=== PATIENT | male | born 1950 | race Caucasian/White ===

== ENCOUNTER 2021-11-07 11:02 | Inpatient (IN) ==
[2021-11-07 11:11] VITALS: BMI 27.3
--- NOTE | 2021-11-07 12:45 | DR.DIZZY ---
HPI Time seen Time Seen by Provider: 11/07/21 12:33 PCP Primary Care Physician: DR. ORTIZ HPI Comment HPI Comment: PATIENT IS 71YR OLD MALE IN ER WITH FLUID BUILD UP EXTREMITIES AND CHEST TIMES 3 DAYS. PATIENT IS WEAK AND HAVE HAD ABNORMAL LIVER EMZYME. 4 PLUS PEDAL EDEMA PRESENT TODAY. Complaint Chief Complaint Doctor Comments: FLUID BUILD UP IN EXTREMITIES AND CHEST TIMES 3 WEEKS. Chief Complaint:: PT'S DAUGHTER STATES PT HAS BEEN HAVING FLUID BUILD UP IN BILATERAL LEGS, HANDS, & IN CHEST X3 WEEKS. PT ALSO C/O GENERALIZED WEAKNESS X3 WEEKS. PT HAS 4+ PITTING EDEMA NOTED TO BLE. PT'S DAUGHTER ALSO STS PT'S LIVER ENZYMES HAS BEEN ELEVATED. COVID-19 Coronavirus risk:travel/contact w/high risk person: No Has patient experienced Coronavirus symptoms: No Nurses Notes Reviewed Nurses Notes Review: Yes Source History Provided: Patient and Family Member Mode of Arrival Mode of Arrival: Wheelchair Timing Onset of Chief Complaint: 10/24/21 Came on: Suddenly Duration Duration: Constant Duration: Weeks Location of Weakness Weakness Location: Generalized Context Onset: At rest Does pt take pot. toxic medication?: No History of: None Stroke Symptoms: None Severity Severity: Normal activity level Modifying factors Worsens: Other (EXERTION.) Associated signs and symptoms Associated Signs and Symptoms: Weak PMH PMH Past Medical History: Yes Past Medical History: Arthritis and Hypertension Past Surgical History: Yes Surgical History: Ortho Surgery and Other Past Surgical History Comment: BACK SURGERY, NECK SURGERY Family History History of Family Medical Conditions: Yes Family Medical History: Diabetes Mellitus and Hypertension Social History Do you use any recreational Drugs:: Yes Travel Risk Coronavirus risk:travel/contact w/high risk person: No Has patient experienced Coronavirus symptoms: No Infectious screening Have you traveled outside the country in the last 6 months?: No Isolation: Standard ROS Review of Systems Constitutional: See HPI, Weakness and Fatigue; negative Fever Eyes: No Symptoms Reported and See HPI ENTM: No Symptoms Reported and See HPI; negative Nose Discharge and Nose Congestion Respiratoy: See HPI, Moist Cough and Short of Breath; negative Wheezing Cardiovascular: See HPI and Edema Gastrointestinal/Abdominal: No Symptoms Reported and See HPI; negative Abdominal Pain, Diarrhea and Vomiting Genitourinary: No Symptoms Reported and See HPI; negative Dysuria Neurological: See HPI and Weakness; negative Headache and Dizziness Musculoskeletal: No Symptoms Reported and See HPI; negative Muscle Pain Integumentary: No Symptoms Reported and See HPI; negative Rash and Juandice Hematologic/Lymphatic: No Symptoms Reported and See HPI; negative Easy Bruising Endocrine: No Symptoms Reported and See HPI; negative Increased Thirst and Increased Urine Psychiatric: No Symptoms Reported and See HPI All Other Systems: Reviewed and Negative PE Vital Signs Vitals: Temperature 97.9 F Pulse Rate 80 Respiratory Rate 16 Blood Pressure [Left Arm] 140/69 Blood Pressure 119/65 O2 Sat by Pulse Oximetry 96 General Limitations: No Limitations General Appearance: Alert and In No Apparent Distress Head Head Exam: Normal Inspection Eyes Eye exam: Normal Appearance; negative Scleral Icterus and Conjunctival Injection Pupils: Regular, Round: Bilateral and Reactive: Bilateral Sclera/Conjunctival: Normal Inspection: Bilateral ENT ENT Exam: Normal Exam and Normal External Ear Exam; negative Normal Oropharynx and TM's Normal Bilaterally Neck Neck Exam: Normal Inspection, Full ROM and Trachea Midline; negative Tenderness Chest Chest Inspection: Normal Inspection and Symmetric Chest Wall Rise; negative Tenderness Respiratory Respiratory Exam: Normal Lung Sounds Bilat; negative Accessory Muscle Use, Chest Wall Tenderness and Respiratory Distress Respiratory Exam: Bilateral: Clear to Auscultation Cardiovascular Cardiovascular Exam: Regular Rate, Normal Rhythm and Normal Heart Sounds; negative Systolic Murmur and Diastolic Murmur Abdominal Exam Abdominal Exam: Normal Inspection, Normal Bowel Sounds and Soft; negative Tenderness Rectal Rectal Exam: Deferred Extremeties Extremities Exam: Full ROM and Edema Back Back Exam: Normal Inspection and Full ROM Neurologic Neurological Exam: Alert and Oriented X3; negative Motor Sensory Deficit Patient Oriented To: Person, Place and Time Speech: Fluid Speech Cranial Nerve Exam: EOM Function (II, III, IV, ): Normal, Facial Sensation (V): Normal, Facial Palsy (VII): Normal, Gag reflex (XI): Normal and Tongue Deviation: Normal Cerebellar Function: Normal Gait Motor Strength - LUE: 5/5 Motor Strength - RUE: 5/5 Motor Strength - LLE: 5/5 Motor Strength - RLE: 5/5 Upper Motor Neuron Exam: Babinski Sign: Normal Psychiatric Psychiatric Exam: Normal Affect and Normal Mood Skin Skin Exam: Other (4 PLUS PEDAL GLADYS.) MDM Differential Diagnosis Differential Diagnosis: Dehydration, Electrolyte disorder, Hypoglycemia and Myocardial infarction Differential Diagnosis Comment: PNEUMONIA, BRONCHITIS, CHF. COURSE Treatment Treatment: SEE ORDERS. Consultation Consultation Comments: discussed patient will dr. maria. he will admit patient. Education/Counseling Education/Counseling: Patient Educated On: Diagnosis ROR Labs Reviewed Laboratory Results Reviewed?: Yes Result Diagrams: 11/13/21 05:36 11/13/21 05:36 Laboratory: WBC 13.9 X10^3/uL (3.6-10.0) H 11/07/21 12:58 RBC 2.96 X10^6/uL (4.7-6.0) L 11/07/21 12:58 Hgb 11.5 g/dL (13.5-18.0) L 11/07/21 12:58 Hct 33.7 % (42.0-54.0) L 11/07/21 12:58 MCV 113.9 fL (80.0-100.0) H 11/07/21 12:58 MCH 38.9 pg (27.0-34.0) H 11/07/21 12:58 MCHC 34.2 g/dL (33.0-35.0) 11/07/21 12:58 RDW 14.7 % (11.6-16.5) 11/07/21 12:58 Plt Count 252 X10^3/uL (150.0-450.0) 11/07/21 12:58 Plt Count Comment Adequate (ADEQUATE) 11/07/21 12:58 MPV 8.9 fL (7.4-11.0) 11/07/21 12:58 Neut % (Auto) 79.3 % (42.0-75.0) H 11/07/21 12:58 Lymph % (Auto) 11.4 % (21.0-51.0) L 11/07/21 12:58 [place] % (Auto) 8.2 % (0.0-13.0) 11/07/21 12:58 Eos % (Auto) 0.1 % (0.9-2.9) L 11/07/21 12:58 Baso % (Auto) 1.0 % (0.2-1.0) 11/07/21 12:58 Neut # (Auto) 11.0 x10^3/uL (2.2-4.8) H 11/07/21 12:58 Lymph # (Auto) 1.6 X10^3/uL (1.3-2.9) 11/07/21 12:58 [place] # (Auto) 1.1 x10^3/uL (0.3-0.8) H 11/07/21 12:58 Eos # (Auto) 0.0 x10^3/uL (0.0-0.2) 11/07/21 12:58 Baso # (Auto) 0.1 X10^3/uL (0.0-0.1) 11/07/21 12:58 Absolute Nucleated RBC 0.1 /100WBC 11/07/21 12:58 Total Counted 100 11/07/21 12:58 Neutrophils % (Manual) 85 % (39-76) H 11/07/21 12:58 Band Neutrophils % 1 % (0-10) 11/07/21 12:58 Lymphocytes % (Manual) 11 % (13-43) L 11/07/21 12:58 Monocytes % (Manual) 3 % (4-9) L 11/07/21 12:58 Plt Morphology Comment Normal (NORMAL) 11/07/21 12:58 RBC Morphology Abnormal (NORMAL) 11/07/21 12:58 Macrocytosis 2+ A 11/07/21 12:58 Target Cells Present 11/07/21 12:58 Sodium 127 mmol/L (136-145) L 11/07/21 12:58 Corrected Sodium TNP 11/07/21 12:58 Potassium 4.9 mmol/L (3.5-5.1) 11/07/21 12:58 Chloride 90 mmol/L (98-107) L 11/07/21 12:58 Carbon Dioxide 24.6 mmol/L (21-32) 11/07/21 12:58 BUN 14 mg/dL (7-18) 11/07/21 12:58 Creatinine 1.22 mg/dL (0.70-1.30) 11/07/21 12:58 Est GFR (MDRD) Af Amer > 60 (>60) 11/07/21 12:58 Est GFR (MDRD) Non-Af > 60 (>60) 11/07/21 12:58 Glucose 92 mg/dL (65-99) 11/07/21 12:58 Calcium 8.0 mg/dL (8.5-10.1) L 11/07/21 12:58 Corrected Calcium 9.3 mg/dL (8.5-10.1) 11/07/21 12:58 Total Bilirubin 2.00 mg/dL (0.2-1.0) H 11/07/21 12:58 AST 192 Units/L (15-37) H 11/07/21 12:58 ALT 77 Units/L (12-78) 11/07/21 12:58 Alkaline Phosphatase 281 Units/L (46-116) H 11/07/21 12:58 Ammonia 18 umol/L (11-32) 11/07/21 12:58 Total Protein 7.1 g/dL (6.4-8.2) 11/07/21 12:58 Albumin 2.4 g/dL (3.4-5.0) L 11/07/21 12:58 Globulin 4.7 g/dL (2.5-4.5) H 11/07/21 12:58 Albumin/Globulin Ratio 0.5 Ratio (1.1-2.1) L 11/07/21 12:58 Amylase 52 Units/L (25-115) 11/07/21 12:58 Lipase 148 Units/L (73-393) 11/07/21 12:58 Specimen Type Clean catch urine 11/07/21 14:15 Urine Color Yellow (YELLOW) 11/07/21 14:15 Urine Appearance Clear (CLEAR) 11/07/21 14:15 Urine pH 5.0 (5.0 - 8.0) 11/07/21 14:15 Ur Specific [place] 1.010 (1.000-1.030) 11/07/21 14:15 Urine Protein 1+ (NEGATIVE) 11/07/21 14:15 Urine Glucose (UA) Negative (NEGATIVE) 11/07/21 14:15 Urine Ketones 1+ (NEGATIVE) 11/07/21 14:15 Urine Occult Blood Negative (NEGATIVE) 11/07/21 14:15 Urine Nitrite Negative (NEGATIVE) 11/07/21 14:15 Urine Bilirubin Negative (NEGATIVE) 11/07/21 14:15 Urine Urobilinogen Normal (NORMAL) 11/07/21 14:15 Ur Leukocyte Esterase Negative (NEGATIVE) 11/07/21 14:15 Urine RBC 0-2 /HPF (0-3) 11/07/21 14:15 Urine WBC 0-2 /HPF (0-5) 11/07/21 14:15 Ur Squamous Epith Cells Rare /HPF (NEGATIVE) 11/07/21 14:15 Urine Bacteria Negative /HPF (NEGATIVE) 11/07/21 14:15 Ur Culture Indicated? No/not indicated 11/07/21 14:15 XRAY XRAY Interpreted by: Radiologist (REPORT NOTED AND DISCUSSED WITH PATIENT.) and Self Opioid Opioid Risk Tool Age (Sean box if 16-45): No History of Preadolescent Sexual Abuse: No Total: 0 Total Score Risk Category: Low Risk Copyright: [facility] predicting aberrant behaviors Diagnosis Discharge Problem: Acute hyponatremia, Acute dehydration, Anasarca Abdominal ascites Qualifiers: Ascites type: due to alcoholic cirrhosis Qualified Code(s): K70.31 - Alcoholic cirrhosis of liver with ascites Instructions Instructions: Chemical Dependency Alcohol Abuse and Dependence Information, Adult Chronic Kidney Disease, Adult, [id number] Hyponatremia, [id number] Forms: Excuse From Work or School Precautions for COVID19 [facility] Social Distancing
--- NOTE | 2021-11-07 13:05 | RAD ---
HISTORYSOBSTUDYCHEST, 1 [id number]/27/2019.TECHNIQUEAP view of the chestFINDINGSPatient is minimally rotated. The left heart border is obscured. Cardiac and mediastinal contours are otherwise normal. There is is severe elevation left hemidiaphragm which is unchanged from prior study. There is left perihilar and right infrahilar opacity. No definite pleural effusion or pneumothorax.IMPRESSIONLeft perihilar and right infrahilar opacity may represent atelectasis or pneumonia.Electronically signed by: Juancarlos Macdonald (Nov 07, 2021 13:03:22)
[2021-11-07 13:22] LABS: BASOPHILS # (AUTO) 0.1 X10^3/uL (0.0-0.1); EOSINOPHILS % (AUTO) 0.1 % (0.9-2.9); HEMATOCRIT 33.7 % (42.0-54.0); HEMOGLOBIN 11.5 g/dL (13.5-18.0); LYMPHOCYTES # (AUTO) 1.6 X10^3/uL (1.3-2.9); LYMPHOCYTES % (AUTO) 11.4 % (21.0-51.0); MEAN CORPUSCULAR HEMOGLOBIN 38.9 pg (27.0-34.0); MEAN CORPUSCULAR HGB CONC 34.2 g/dL (33.0-35.0); MEAN CORPUSCULAR VOLUME 113.9 fL (80.0-100.0); MEAN PLATELET VOLUME 8.9 fL (7.4-11.0); MONOCYTES # (AUTO) 1.1 x10^3/uL (0.3-0.8); MONOCYTES % (AUTO) 8.2 % (0.0-13.0); NEUTROPHILS % (AUTO) 79.3 % (42.0-75.0); RED BLOOD COUNT 2.96 X10^6/uL (4.7-6.0); RED CELL DISTRIBUTION WIDTH 14.7 % (11.6-16.5); WHITE BLOOD COUNT 13.9 X10^3/uL (3.6-10.0)
[2021-11-07 13:38] LABS: AMMONIA 18 umol/L (11-32)
[2021-11-07 13:43] LABS: ALANINE AMINOTRANSFERASE 77 Units/L (12-78); ALBUMIN 2.4 g/dL (3.4-5.0); ALKALINE PHOSPHATASE 281 Units/L (46-116); AMYLASE 52 Units/L (25-115); ASPARTATE AMINO TRANSFERASE 192 Units/L (15-37); BLOOD UREA NITROGEN 14 mg/dL (7-18); CARBON DIOXIDE 24.6 mmol/L (21-32); CHLORIDE 90 mmol/L (98-107); COR CA(FOR HYPOALB) 9.3 mg/dL (8.5-10.1); CREATININE 1.22 mg/dL (0.70-1.30); LIPASE 148 Units/L (73-393); SODIUM 127 mmol/L (136-145); TOTAL PROTEIN 7.1 g/dL (6.4-8.2); eGFR NON BLACK RACES > 60 (>60)
[2021-11-07 14:04] LABS: PLATELET MORPHOLOGY COMMENT NORMAL (NORMAL); TARGET CELLS PRESENT
[2021-11-07 14:05] LABS: BAND NEUTROPHILS % 1 % (0-10)
[2021-11-07] MEDS ORDERED: NS 100 ML IV 100 ML ONE (14:13)
[2021-11-07 14:31] LABS: BILIRUBIN,URINE NEGATIVE (NEGATIVE); BLOOD/HEMOGLOBIN,URINE NEGATIVE (NEGATIVE); GLUCOSE, URINE NEGATIVE (NEGATIVE); KETONES,URINE 1+ (NEGATIVE); LEUKOCYTE ESTERASE ,URINE NEGATIVE (NEGATIVE); NITRITES,URINE NEGATIVE (NEGATIVE); PROTEIN,URINE 1+ (NEGATIVE); UROBILINOGEN,URINE NORMAL (NORMAL)
[2021-11-07 14:45] LABS: APPEARANCE,URINE CLEAR (CLEAR); COLOR,URINE YELLOW (YELLOW)
[2021-11-07 14:46] LABS: BACTERIA,URINE NEGATIVE /HPF (NEGATIVE); RBC,URINE 0-2 /HPF (0-3); SQUAMOUS EPITHELIAL CELL,UR RARE /HPF (NEGATIVE)
--- NOTE | 2021-11-07 14:57 | CT ---
HISTORYFLUID BUILD UP IN BILATERAL LEGS, HANDS, & IN CHEST X3 WEEKS. PT ALSO C/O GENERALIZED WEAKNESS X3 WEEKS. PT HAS 4+ PITTING EDEMA NOTED TO BLE. PT'S DAUGHTER ALSO STS PT'S LIVER ENZYMES HAS BEEN ELEVATED.STUDYABDOMEN/PELVIS WITH CONCOMPARISONAbdomen ultrasound from 09/11/2021.TECHNIQUEMultiple axial images of the abdomen and pelvis were obtained from the lung bases to the pubic symphysis after the administration of IV contrast. Dose reduction techniques including Automated Exposure Control (AEC) and adjustment of mA and kV were utilized.FINDINGSMild motion artifact limits evaluation. Left lower lobe subsegmental atelectasis is present in image 3 series 4. The heart is normal in size. There is prominent pericardial fat. There is elevation of the left hemidiaphragm. There is diffuse hepatic steatosis. The gallbladder, spleen, pancreas, and adrenal glands appear benign. Kidneys appear benign without calculus or hydronephrosis. Urinary bladder is partially decompressed. The prostate is normal in size. Negative for diverticulitis. Apparent wall thickening of some there is of the colon wall such as at the proximal ascending colon measuring 1.1 cm image 70 series 4 and at the splenic flexure measuring 1 cm image 28 series 4 likely due to decompressed state. The appendix appears normal. Negative for bowel obstruction. Moderately atherosclerotic normal caliber abdominal aorta. No free air or abscess. The portal vein is patent. There is mild ascites particularly in the left upper quadrant about the spleen moderate body wall edema. Status post laminectomy at L4 and L5. Moderate to severe lumbar spondylosis. Chronic appearing left rib fractures. Mild leftward curvature of the lumbar spine apex L2.IMPRESSIONMild ascites particularly in the left upper quadrant.Hepatic steatosis.Elevated left hemidiaphragm with left lower lobe subsegmental atelectasis.Mild thickening of areas of the colon wall favored to be due to a decompressed state rather than colitis or neoplasm.Electronically signed by: Juancarlos Macdonald (Nov 07, 2021 14:56:11)
[2021-11-07] MEDS ORDERED: LIBRIUM PO ONE (21:41)
[2021-11-07] MEDS: LIBRIUM PO SCH (21:52)
[2021-11-07] MEDS ORDERED: LASIX IVP ONE ×2 (22:41→22:57)
[2021-11-07] MEDS ORDERED: VENTOLIN or PROAIR HFA IN PRN (22:41)
[2021-11-07] MEDS ORDERED: ALBURX INJ 5% 25 G/500 ML VIAL IV SCH (22:41)
[2021-11-07] MEDS ORDERED: NORCO 10/325 TAB ONE (22:58)
[2021-11-07] MEDS ORDERED: ALBUMIN HUMAN 25%- 100 ML 100 ML ONE (23:29)
[2021-11-07] MEDS: SOLU-Medrol 40 MG VIAL IVP SCH (23:45)
[2021-11-08] MEDS ORDERED: ALBUMIN HUMAN 25% IV ONE (00:07)
[2021-11-08] MEDS: NORCO 10/325 TAB PO SCH ×2 (00:20→05:00)
[2021-11-08 02:57] LABS: BILIRUBIN,URINE NEGATIVE (NEGATIVE); BLOOD/HEMOGLOBIN,URINE NEGATIVE (NEGATIVE); GLUCOSE, URINE NEGATIVE (NEGATIVE); KETONES,URINE 1+ (NEGATIVE); LEUKOCYTE ESTERASE ,URINE NEGATIVE (NEGATIVE); NITRITES,URINE NEGATIVE (NEGATIVE); PROTEIN,URINE NEGATIVE (NEGATIVE); UROBILINOGEN,URINE NORMAL (NORMAL)
[2021-11-08 03:07] LABS: APPEARANCE,URINE CLEAR (CLEAR); COLOR,URINE STRAW (YELLOW)
[2021-11-08] MEDS ORDERED: NORCO 10/325 TAB ONE ×2 (05:00→10:12)
[2021-11-08 07:05] LABS: BASOPHILS # (AUTO) 0.2 X10^3/uL (0.0-0.1); BASOPHILS % (AUTO) 1.1 % (0.2-1.0); EOSINOPHILS % (AUTO) 0.1 % (0.9-2.9); HEMOGLOBIN 11.9 g/dL (13.5-18.0); LYMPHOCYTES # (AUTO) 1.6 X10^3/uL (1.3-2.9); LYMPHOCYTES % (AUTO) 8.7 % (21.0-51.0); MEAN CORPUSCULAR HEMOGLOBIN 38.4 pg (27.0-34.0); MONOCYTES # (AUTO) 1.6 x10^3/uL (0.3-0.8); MONOCYTES % (AUTO) 8.7 % (0.0-13.0); NEUTROPHILS # (AUTO) 14.7 x10^3/uL (2.2-4.8); NEUTROPHILS % (AUTO) 81.4 % (42.0-75.0); RED BLOOD COUNT 3.09 X10^6/uL (4.7-6.0); RED CELL DISTRIBUTION WIDTH 14.3 % (11.6-16.5); WHITE BLOOD COUNT 18.1 X10^3/uL (3.6-10.0)
[2021-11-08 07:12] LABS: ALANINE AMINOTRANSFERASE 72 Units/L (12-78); ALKALINE PHOSPHATASE 267 Units/L (46-116); ASPARTATE AMINO TRANSFERASE 170 Units/L (15-37); BLOOD UREA NITROGEN 11 mg/dL (7-18); CALCIUM 8.5 mg/dL (8.5-10.1); CARBON DIOXIDE 22.9 mmol/L (21-32); CHLORIDE 92 mmol/L (98-107); COR CA(FOR HYPOALB) 9.3 mg/dL (8.5-10.1); CREATININE 0.87 mg/dL (0.70-1.30); MAGNESIUM 1.7 mg/dL (1.7-2.9); SODIUM 132 mmol/L (136-145); TOTAL PROTEIN 7.4 g/dL (6.4-8.2); eGFR NON BLACK RACES > 60 (>60)
[2021-11-08] MEDS ORDERED: PULMICORT NEB TX 0.5 MG NEB ONE ×2 (07:34→20:30)
[2021-11-08] MEDS ORDERED: BROVANA ONE (07:35)
[2021-11-08 07:36] LABS: PLATELET MORPHOLOGY COMMENT NORMAL (NORMAL); TARGET CELLS PRESENT
[2021-11-08] MEDS: PULMICORT NEB TX 0.5 MG NEB SCH (08:18)
[2021-11-08] MEDS: BROVANA IN SCH (08:18)
[2021-11-08] MEDS: ALDACTONE TAB 25 MG PO SCH (08:35)
[2021-11-08] MEDS: TOPROL XL PO SCH (08:35)
[2021-11-08] MEDS: LIBRIUM PO SCH ×3 (08:35→17:00)
[2021-11-08] MEDS ORDERED: REMDESIVIR 200 MG in NS 250 ML IV 250 ML IV NR (09:41)
[2021-11-08] MEDS ORDERED: LASIX IVP ONE ×2 (10:12→21:00)
[2021-11-08] MEDS ORDERED: REMDESIVIR IV ONE (10:12)
[2021-11-08] MEDS ORDERED: NS 250 ML IV 250 ML IV ONE (10:13)
[2021-11-08] MEDS: XYLOCAINE OINT 5% TOP SCH ×2 (10:37→13:33)
[2021-11-08] MEDS: ALBUMIN HUMAN 25%- 100 ML 100 ML IV SCH (10:37)
[2021-11-08] MEDS: LASIX IVP SCH (10:38)
[2021-11-08] MEDS: NORCO 10/325 TAB PO PRN ×2 (10:38→17:00)
[2021-11-08] MEDS ORDERED: LOVENOX INJ 40 MG SYR SC ONE (13:00)
[2021-11-08] MEDS: LOVENOX INJ 40 MG SYR SC SCH (14:43)
[2021-11-08] MEDS ORDERED: BROVANA IN ONE (20:30)
[2021-11-08] MEDS ORDERED: LIBRIUM PO ONE (21:00)
[2021-11-08] MEDS ORDERED: ALBUMIN HUMAN 25%- 100 ML IV ONE (21:00)
[2021-11-08] MEDS ORDERED: NORCO 10/325 TAB PO ONE (22:00)
[2021-11-09] MEDS ORDERED: PULMICORT NEB TX 0.5 MG NEB ONE (09:30)
[2021-11-09] MEDS ORDERED: BROVANA IN ONE (09:30)
[2021-11-09] MEDS: LIBRIUM PO SCH ×5 (14:00→20:44)
[2021-11-09 14:01] LABS: ALANINE AMINOTRANSFERASE 54 Units/L (12-78); ALBUMIN 2.9 g/dL (3.4-5.0); ALKALINE PHOSPHATASE 214 Units/L (46-116); AMMONIA 31 umol/L (11-32); ASPARTATE AMINO TRANSFERASE 115 Units/L (15-37); BLOOD UREA NITROGEN 10 mg/dL (7-18); CARBON DIOXIDE 28.7 mmol/L (21-32); CHLORIDE 96 mmol/L (98-107); COR CA(FOR HYPOALB) 8.9 mg/dL (8.5-10.1); COR NA(FOR HYPERGLY) 133 mmol/L (136-145); CREATININE 0.88 mg/dL (0.70-1.30); SODIUM 133 mmol/L (136-145); TOTAL PROTEIN 6.5 g/dL (6.4-8.2); eGFR NON BLACK RACES > 60 (>60)
[2021-11-09 14:04] LABS: BASOPHILS % (AUTO) 0.2 % (0.2-1.0); EOSINOPHILS % (AUTO) 0.4 % (0.9-2.9); HEMATOCRIT 30.8 % (42.0-54.0); HEMOGLOBIN 10.6 g/dL (13.5-18.0); LYMPHOCYTES % (AUTO) 10.9 % (21.0-51.0); MEAN CORPUSCULAR HGB CONC 34.4 g/dL (33.0-35.0); MEAN CORPUSCULAR VOLUME 113.2 fL (80.0-100.0); MEAN PLATELET VOLUME 9.2 fL (7.4-11.0); MONOCYTES # (AUTO) 0.9 x10^3/uL (0.3-0.8); MONOCYTES % (AUTO) 9.5 % (0.0-13.0); NEUTROPHILS # (AUTO) 7.4 x10^3/uL (2.2-4.8); PLATELET MORPHOLOGY COMMENT NORMAL (NORMAL); RED BLOOD COUNT 2.72 X10^6/uL (4.7-6.0); RED CELL DISTRIBUTION WIDTH 14.2 % (11.6-16.5); WHITE BLOOD COUNT 9.4 X10^3/uL (3.6-10.0)
[2021-11-09] MEDS: XYLOCAINE OINT 5% TOP SCH ×3 (14:14→21:52)
--- NOTE | 2021-11-09 14:26 | RAD ---
HISTORYCOVID, shortness of breathSTUDYChest AP [id number] remains enlarged. No congestive heart failure is noted. Right lung and left upper lung crook are clear. Left hemidiaphragm is elevated. Retrocardiac left lower lobe infiltrate atelectasis likely present. No pleural effusion or pneumothorax is identified. Bony thorax is unremarkable.IMPRESSIONNo change cardiomegaly without congestive heart failureNo change chronically elevated left hemidiaphragmRight lung and left upper lung crook clearRetrocardiac left lower lobe infiltrate atelectasis unchangedElectronically signed by: JASON OCONNOR (Nov 09, 2021 14:24:36)
[2021-11-09] MEDS: ALBUMIN HUMAN 25%- 100 ML 100 ML IV SCH ×3 (15:53→20:44)
[2021-11-09] MEDS: LOVENOX INJ 40 MG SYR SC SCH (15:55)
[2021-11-09] MEDS: TOPROL XL PO SCH (15:55)
[2021-11-09] MEDS: ALDACTONE TAB 25 MG PO SCH (15:55)
[2021-11-09] MEDS: REMDESIVIR 100 MG in NS 250 ML IV 250 ML IV SCH (15:55)
--- NOTE | 2021-11-09 16:00 | PCM.PROG ---
Progress Note Progress Note for Day of Date of Exam: 11/09/21 Subjective Subjective: Patient is alert this morning. He wishes to get out of bed and walk and sit in the chair. No significant problems overnight. Past Medical Family Social History Past Med/Fam/Surg Hx: No changes since H&P Allergies: Allergies No Known Drug Allergies Allergy (Verified 11/07/21 13:04) Vital Signs and I&O's Vital Signs: Temperature 98.3 F Pulse Rate [Left Brachial] 86 Pulse Rate 102 Respiratory Rate 20 Blood Pressure [Left Arm] 145/71 Blood Pressure 140/68 O2 Sat by Pulse Oximetry 99 Intake and Output: Intake & Output 11/07/21 11/08/21 11/09/21 11/10/21 11:59 11:59 11:59 11:59 Intake Total 400 / 400 270 / 270 666 / 666 Output Total 1625 / 1625 625 / 625 1200 / 1200 Balance -1225 / -1225 -355 / -355 -534 / -534 Physical Exam Oriented: Normal Eyes: Normal Ear: Normal Nose: Normal Throat: Normal Respiratory: Normal Cardiovascular: Normal : Normal Auscultation: Bowel Sounds: Normal Palpation: Normal Tenderness: Normal Skin: Normal Musculoskeletal: Normal Psychiatric: Normal Mood Description: Calm Affect: Normal Speech Pattern: Clear and Appropriate Laboratory and Diagnostics Result Diagrams: 11/09/21 04:46 11/09/21 04:46 Labs: Laboratory WBC 9.4 X10^3/uL (3.6-10.0) D 11/09/21 04:46 RBC 2.72 X10^6/uL (4.7-6.0) L 11/09/21 04:46 Hgb 10.6 g/dL (13.5-18.0) L 11/09/21 04:46 Hct 30.8 % (42.0-54.0) L 11/09/21 04:46 MCV 113.2 fL (80.0-100.0) H 11/09/21 04:46 MCH 39.0 pg (27.0-34.0) H 11/09/21 04:46 MCHC 34.4 g/dL (33.0-35.0) 11/09/21 04:46 RDW 14.2 % (11.6-16.5) 11/09/21 04:46 Plt Count 159 X10^3/uL (150.0-450.0) 11/09/21 04:46 Plt Count Comment Adequate (ADEQUATE) 11/09/21 04:46 MPV 9.2 fL (7.4-11.0) 11/09/21 04:46 Neut % (Auto) 79.0 % (42.0-75.0) H 11/09/21 04:46 Lymph % (Auto) 10.9 % (21.0-51.0) L 11/09/21 04:46 [place] % (Auto) 9.5 % (0.0-13.0) 11/09/21 04:46 Eos % (Auto) 0.4 % (0.9-2.9) L 11/09/21 04:46 Baso % (Auto) 0.2 % (0.2-1.0) 11/09/21 04:46 Neut # (Auto) 7.4 x10^3/uL (2.2-4.8) H 11/09/21 04:46 Lymph # (Auto) 1.0 X10^3/uL (1.3-2.9) L 11/09/21 04:46 [place] # (Auto) 0.9 x10^3/uL (0.3-0.8) H 11/09/21 04:46 Eos # (Auto) 0.0 x10^3/uL (0.0-0.2) 11/09/21 04:46 Baso # (Auto) 0.0 X10^3/uL (0.0-0.1) 11/09/21 04:46 Absolute Nucleated RBC 0.1 /100WBC 11/09/21 04:46 Total Counted 100 11/07/21 12:58 Neutrophils % (Manual) 85 % (39-76) H 11/07/21 12:58 Band Neutrophils % 1 % (0-10) 11/07/21 12:58 Lymphocytes % (Manual) 11 % (13-43) L 11/07/21 12:58 Monocytes % (Manual) 3 % (4-9) L 11/07/21 12:58 Plt Morphology Comment Normal (NORMAL) 11/09/21 04:46 RBC Morphology Abnormal (NORMAL) 11/09/21 04:46 Macrocytosis 2+ A 11/09/21 04:46 Target Cells Present 11/08/21 06:40 PT 14.6 SECONDS (11.8-14.3) 11/07/21 23:19 INR Target Range - 11/07/21 23:19 INR 1.20 (0.8-1.3) 11/07/21 23:19 APTT 35.7 SECONDS (22.9-36.5) 11/08/21 06:40 PTT Comment - 11/08/21 06:40 Sodium 133 mmol/L (136-145) L 11/09/21 04:46 Corrected Sodium 133 mmol/L (136-145) L 11/09/21 04:46 Potassium 3.4 mmol/L (3.5-5.1) L 11/09/21 04:46 Chloride 96 mmol/L (98-107) L 11/09/21 04:46 Carbon Dioxide 28.7 mmol/L (21-32) 11/09/21 04:46 BUN 10 mg/dL (7-18) 11/09/21 04:46 Creatinine 0.88 mg/dL (0.70-1.30) 11/09/21 04:46 Est GFR (MDRD) Af Amer > 60 (>60) 11/09/21 04:46 Est GFR (MDRD) Non-Af > 60 (>60) 11/09/21 04:46 Glucose 114 mg/dL (65-99) H 11/09/21 04:46 Calcium 8.0 mg/dL (8.5-10.1) L 11/09/21 04:46 Corrected Calcium 8.9 mg/dL (8.5-10.1) 11/09/21 04:46 Magnesium 1.7 mg/dL (1.7-2.9) 11/08/21 06:40 Total Bilirubin 1.70 mg/dL (0.2-1.0) H 11/09/21 04:46 AST 115 Units/L (15-37) H 11/09/21 04:46 ALT 54 Units/L (12-78) 11/09/21 04:46 Alkaline Phosphatase 214 Units/L (46-116) H 11/09/21 04:46 Ammonia 31 umol/L (11-32) 11/09/21 04:46 C-Reactive Protein 78.20 mg/L (0-3.0) H 11/09/21 04:46 Total Protein 6.5 g/dL (6.4-8.2) 11/09/21 04:46 Albumin 2.9 g/dL (3.4-5.0) L 11/09/21 04:46 Globulin 3.6 g/dL (2.5-4.5) 11/09/21 04:46 Albumin/Globulin Ratio 0.8 Ratio (1.1-2.1) L 11/09/21 04:46 Amylase 52 Units/L (25-115) 11/07/21 12:58 Lipase 148 Units/L (73-393) 11/07/21 12:58 Specimen Type Clean catch urine 11/08/21 02:43 Urine Color Straw (YELLOW) 11/08/21 02:43 Urine Appearance Clear (CLEAR) 11/08/21 02:43 Urine pH 6.0 (5.0 - 8.0) 11/08/21 02:43 Ur Specific [place] 1.005 (1.000-1.030) 11/08/21 02:43 Urine Protein Negative (NEGATIVE) 11/08/21 02:43 Urine Glucose (UA) Negative (NEGATIVE) 11/08/21 02:43 Urine Ketones 1+ (NEGATIVE) 11/08/21 02:43 Urine Occult Blood Negative (NEGATIVE) 11/08/21 02:43 Urine Nitrite Negative (NEGATIVE) 11/08/21 02:43 Urine Bilirubin Negative (NEGATIVE) 11/08/21 02:43 Urine Urobilinogen Normal (NORMAL) 11/08/21 02:43 Ur Leukocyte Esterase Negative (NEGATIVE) 11/08/21 02:43 Urine RBC 0-2 /HPF (0-3) 11/07/21 14:15 Urine WBC 0-2 /HPF (0-5) 11/07/21 14:15 Ur Squamous Epith Cells Rare /HPF (NEGATIVE) 11/07/21 14:15 Urine Bacteria Negative /HPF (NEGATIVE) 11/07/21 14:15 Ur Culture Indicated? No/not indicated 11/07/21 14:15 SARS CoV-2 RNA Rapid GILLES Positive (NEGATIVE) A 11/07/21 20:25 Radiology Reviewed: Yes Plan (1) Elevated LFTs: Status: Acute Narrative Support Text: Improving. Plan: Continue IVF and avoid alcohol. (2) Alcoholism: Status: Acute Plan: Continue Librium. (3) Acute hyponatremia: Status: Acute Plan: NS IVF (4) Acute hypokalemia: Status: Acute Plan: Potassium replacement protocol. (5) Diarrhea in adult patient: Status: Acute (6) COPD with hypoxia: Status: Acute (7) Altered mental state: Status: Acute Qualifiers: Altered mental status type: transient alteration of awareness Qualified Code(s): R40.4 - Transient alteration of awareness Narrative Support Text: improved. Plan: Monitor for change.
[2021-11-09] MEDS: LASIX IVP SCH (16:33)
[2021-11-09] MEDS ORDERED: TYLENOL 325 MG TAB PO ONE (20:32)
[2021-11-09] MEDS: PULMICORT NEB TX 0.5 MG NEB SCH (21:05)
[2021-11-09] MEDS: BROVANA IN SCH (21:05)
[2021-11-09] MEDS: NORCO 10/325 TAB PO PRN (21:41)
[2021-11-09] MEDS ORDERED: COLACE CAP 100 MG PO ONE (22:09)
[2021-11-09] MEDS: COLACE CAP 100 MG PO PRN (22:27)
[2021-11-10] MEDS: NORCO 10/325 TAB PO PRN ×3 (04:31→16:24)
[2021-11-10 05:44] LABS: BASOPHILS # (AUTO) 0.1 X10^3/uL (0.0-0.1); BASOPHILS % (AUTO) 0.7 % (0.2-1.0); EOSINOPHILS # (AUTO) 0.1 x10^3/uL (0.0-0.2); EOSINOPHILS % (AUTO) 0.8 % (0.9-2.9); HEMATOCRIT 30.7 % (42.0-54.0); HEMOGLOBIN 10.5 g/dL (13.5-18.0); LYMPHOCYTES # (AUTO) 0.9 X10^3/uL (1.3-2.9); LYMPHOCYTES % (AUTO) 9.2 % (21.0-51.0); MEAN CORPUSCULAR HEMOGLOBIN 38.8 pg (27.0-34.0); MEAN CORPUSCULAR HGB CONC 34.3 g/dL (33.0-35.0); MEAN CORPUSCULAR VOLUME 113.2 fL (80.0-100.0); MONOCYTES # (AUTO) 0.9 x10^3/uL (0.3-0.8); NEUTROPHILS # (AUTO) 7.5 x10^3/uL (2.2-4.8); NEUTROPHILS % (AUTO) 79.3 % (42.0-75.0); RED BLOOD COUNT 2.71 X10^6/uL (4.7-6.0); RED CELL DISTRIBUTION WIDTH 14.6 % (11.6-16.5); WHITE BLOOD COUNT 9.5 X10^3/uL (3.6-10.0)
[2021-11-10 06:01] LABS: ALANINE AMINOTRANSFERASE 45 Units/L (12-78); ALKALINE PHOSPHATASE 206 Units/L (46-116); ASPARTATE AMINO TRANSFERASE 83 Units/L (15-37); BLOOD UREA NITROGEN 8 mg/dL (7-18); CALCIUM 8.2 mg/dL (8.5-10.1); CHLORIDE 101 mmol/L (98-107); COR NA(FOR HYPERGLY) 139 mmol/L (136-145); CREATININE 0.79 mg/dL (0.70-1.30); SODIUM 138 mmol/L (136-145); TOTAL PROTEIN 6.4 g/dL (6.4-8.2); eGFR NON BLACK RACES > 60 (>60)
[2021-11-10] MEDS: XYLOCAINE OINT 5% TOP SCH ×2 (06:18→13:53)
[2021-11-10 06:23] LABS: PLATELET MORPHOLOGY COMMENT NORMAL (NORMAL); TARGET CELLS PRESENT
[2021-11-10] MEDS: ALBUMIN HUMAN 25%- 100 ML 100 ML IV SCH ×2 (09:00→20:45)
[2021-11-10] MEDS: LIBRIUM PO SCH ×4 (09:00→20:45)
[2021-11-10] MEDS: BROVANA IN SCH ×2 (09:14→20:15)
[2021-11-10] MEDS: PULMICORT NEB TX 0.5 MG NEB SCH ×2 (09:14→20:15)
[2021-11-10] MEDS: ALDACTONE TAB 25 MG PO SCH (10:00)
[2021-11-10] MEDS: TOPROL XL PO SCH (10:00)
[2021-11-10] MEDS: REMDESIVIR 100 MG in NS 250 ML IV 250 ML IV SCH (10:00)
[2021-11-10] MEDS: COLACE CAP 100 MG PO PRN (10:00)
[2021-11-10] MEDS: LOVENOX INJ 40 MG SYR SC SCH (10:19)
[2021-11-10 11:54] LABS: IRON 28 ug/dL (50-175)
--- NOTE | 2021-11-10 15:42 | PCM.PROG ---
Progress Note Progress Note for Day of Date of Exam: 11/10/21 Subjective Subjective: Patient is alert this morning. He wishes to go home this morning. No new complaints today and no acute problems overnight. Will check anemia profile this am and treat accordingly. Discharge home in am. Past Medical Family Social History Past Med/Fam/Surg Hx: No changes since H&P Allergies: Allergies No Known Drug Allergies Allergy (Verified 11/07/21 13:04) Vital Signs and I&O's Vital Signs: Temperature 97.8 F Pulse Rate [Left Brachial] 86 Pulse Rate 83 Respiratory Rate 22 Blood Pressure [Left Arm] 145/71 Blood Pressure 148/76 O2 Sat by Pulse Oximetry 92 Intake and Output: Intake & Output 11/08/21 11/09/21 11/10/21 11/11/21 11:59 11:59 11:59 11:59 Intake Total 400 / 400 270 / 270 1631 / 1631 Output Total 1625 / 1625 625 / 625 2600 / 2600 Balance -1225 / -1225 -355 / -355 -969 / -969 Physical Exam Oriented: Normal Eyes: Normal Ear: Normal Nose: Normal Throat: Normal Respiratory: Normal Cardiovascular: Normal : Normal Auscultation: Bowel Sounds: Normal Tenderness: Normal Skin: Normal Musculoskeletal: Normal Psychiatric: Normal Mood Description: Calm Affect: Normal Speech Pattern: Clear and Appropriate Laboratory and Diagnostics Result Diagrams: 11/10/21 05:06 11/10/21 05:06 Labs: Laboratory WBC 9.5 X10^3/uL (3.6-10.0) 11/10/21 05:06 RBC 2.71 X10^6/uL (4.7-6.0) L 11/10/21 05:06 Hgb 10.5 g/dL (13.5-18.0) L 11/10/21 05:06 Hct 30.7 % (42.0-54.0) L 11/10/21 05:06 MCV 113.2 fL (80.0-100.0) H 11/10/21 05:06 MCH 38.8 pg (27.0-34.0) H 11/10/21 05:06 MCHC 34.3 g/dL (33.0-35.0) 11/10/21 05:06 RDW 14.6 % (11.6-16.5) 11/10/21 05:06 Plt Count 150 X10^3/uL (150.0-450.0) 11/10/21 05:06 Plt Count Comment Adequate (ADEQUATE) 11/10/21 05:06 MPV 9.0 fL (7.4-11.0) 11/10/21 05:06 Neut % (Auto) 79.3 % (42.0-75.0) H 11/10/21 05:06 Lymph % (Auto) 9.2 % (21.0-51.0) L 11/10/21 05:06 Evangeline % (Auto) 10.0 % (0.0-13.0) 11/10/21 05:06 Eos % (Auto) 0.8 % (0.9-2.9) L 11/10/21 05:06 Baso % (Auto) 0.7 % (0.2-1.0) 11/10/21 05:06 Neut # (Auto) 7.5 x10^3/uL (2.2-4.8) H 11/10/21 05:06 Lymph # (Auto) 0.9 X10^3/uL (1.3-2.9) L 11/10/21 05:06 Evangeline # (Auto) 0.9 x10^3/uL (0.3-0.8) H 11/10/21 05:06 Eos # (Auto) 0.1 x10^3/uL (0.0-0.2) 11/10/21 05:06 Baso # (Auto) 0.1 X10^3/uL (0.0-0.1) 11/10/21 05:06 Absolute Nucleated RBC 0.1 /100WBC 11/10/21 05:06 Total Counted 100 11/07/21 12:58 Neutrophils % (Manual) 85 % (39-76) H 11/07/21 12:58 Band Neutrophils % 1 % (0-10) 11/07/21 12:58 Lymphocytes % (Manual) 11 % (13-43) L 11/07/21 12:58 Monocytes % (Manual) 3 % (4-9) L 11/07/21 12:58 Plt Morphology Comment Normal (NORMAL) 11/10/21 05:06 RBC Morphology Abnormal (NORMAL) 11/10/21 05:06 Macrocytosis 2+ A 11/10/21 05:06 Target Cells Present 11/10/21 05:06 PT 14.6 SECONDS (11.8-14.3) 11/07/21 23:19 INR Target Range - 11/07/21 23:19 INR 1.20 (0.8-1.3) 11/07/21 23:19 APTT 35.7 SECONDS (22.9-36.5) 11/08/21 06:40 PTT Comment - 11/08/21 06:40 Sodium 138 mmol/L (136-145) 11/10/21 05:06 Corrected Sodium 139 mmol/L (136-145) 11/10/21 05:06 Potassium 3.6 mmol/L (3.5-5.1) 11/10/21 05:06 Chloride 101 mmol/L (98-107) 11/10/21 05:06 Carbon Dioxide 31.0 mmol/L (21-32) 11/10/21 05:06 BUN 8 mg/dL (7-18) 11/10/21 05:06 Creatinine 0.79 mg/dL (0.70-1.30) 11/10/21 05:06 Est GFR (MDRD) Af Amer > 60 (>60) 11/10/21 05:06 Est GFR (MDRD) Non-Af > 60 (>60) 11/10/21 05:06 Glucose 133 mg/dL (65-99) H 11/10/21 05:06 Calcium 8.2 mg/dL (8.5-10.1) L 11/10/21 05:06 Corrected Calcium 9.0 mg/dL (8.5-10.1) 11/10/21 05:06 Magnesium 1.7 mg/dL (1.7-2.9) 11/08/21 06:40 Iron 28 ug/dL (50-175) L 11/10/21 05:06 Transferrin 106 mg/dL (202-364) L 11/10/21 05:06 Ferritin 415 ng/mL (26-388) H 11/10/21 05:06 Total Bilirubin 1.50 mg/dL (0.2-1.0) H 11/10/21 05:06 AST 83 Units/L (15-37) H 11/10/21 05:06 ALT 45 Units/L (12-78) 11/10/21 05:06 Alkaline Phosphatase 206 Units/L (46-116) H 11/10/21 05:06 Ammonia 31 umol/L (11-32) 11/09/21 04:46 C-Reactive Protein 78.20 mg/L (0-3.0) H 11/09/21 04:46 Total Protein 6.4 g/dL (6.4-8.2) 11/10/21 05:06 Albumin 3.0 g/dL (3.4-5.0) L 11/10/21 05:06 Globulin 3.4 g/dL (2.5-4.5) 11/10/21 05:06 Albumin/Globulin Ratio 0.9 Ratio (1.1-2.1) L 11/10/21 05:06 Amylase 52 Units/L (25-115) 11/07/21 12:58 Lipase 148 Units/L (73-393) 11/07/21 12:58 Vitamin B12 > 2000 pg/mL (193-986) H 11/10/21 05:06 Folate 10.2 ng/mL (>8.6) 11/10/21 05:06 Specimen Type Clean catch urine 11/08/21 02:43 Urine Color Straw (YELLOW) 11/08/21 02:43 Urine Appearance Clear (CLEAR) 11/08/21 02:43 Urine pH 6.0 (5.0 - 8.0) 11/08/21 02:43 Ur Specific [place] 1.005 (1.000-1.030) 11/08/21 02:43 Urine Protein Negative (NEGATIVE) 11/08/21 02:43 Urine Glucose (UA) Negative (NEGATIVE) 11/08/21 02:43 Urine Ketones 1+ (NEGATIVE) 11/08/21 02:43 Urine Occult Blood Negative (NEGATIVE) 11/08/21 02:43 Urine Nitrite Negative (NEGATIVE) 11/08/21 02:43 Urine Bilirubin Negative (NEGATIVE) 11/08/21 02:43 Urine Urobilinogen Normal (NORMAL) 11/08/21 02:43 Ur Leukocyte Esterase Negative (NEGATIVE) 11/08/21 02:43 Urine RBC 0-2 /HPF (0-3) 11/07/21 14:15 Urine WBC 0-2 /HPF (0-5) 11/07/21 14:15 Ur Squamous Epith Cells Rare /HPF (NEGATIVE) 11/07/21 14:15 Urine Bacteria Negative /HPF (NEGATIVE) 11/07/21 14:15 Ur Culture Indicated? No/not indicated 11/07/21 14:15 SARS CoV-2 RNA Rapid GILLES Positive (NEGATIVE) A 11/07/21 20:25 Plan (1) Elevated LFTs: Status: Acute Plan: Continue IVF and avoid alcohol. (2) Alcoholism: Status: Acute Plan: Continue Librium. (3) Acute hyponatremia: Status: Resolved Plan: NS IVF (4) Acute hypokalemia: Status: Resolved Plan: Potassium replacement protocol. (5) Diarrhea in adult patient: Status: Resolved (6) COPD with hypoxia: Status: Acute (7) Altered mental state: Status: Resolved Qualifiers: Altered mental status type: transient alteration of awareness Qualified Code(s): R40.4 - Transient alteration of awareness Plan: Monitor for change.
[2021-11-11] MEDS: XYLOCAINE OINT 5% TOP SCH ×4 (00:45→21:30)
[2021-11-11] MEDS: COLACE CAP 100 MG PO PRN (02:00)
[2021-11-11 06:05] LABS: BLOOD UREA NITROGEN 6 mg/dL (7-18); CALCIUM 8.6 mg/dL (8.5-10.1); CARBON DIOXIDE 30.7 mmol/L (21-32); CHLORIDE 103 mmol/L (98-107); COR NA(FOR HYPERGLY) 142 mmol/L (136-145); CREATININE 0.83 mg/dL (0.70-1.30); SODIUM 141 mmol/L (136-145); eGFR NON BLACK RACES > 60 (>60)
[2021-11-11 06:06] LABS: BASOPHILS % (AUTO) 0.4 % (0.2-1.0); EOSINOPHILS # (AUTO) 0.1 x10^3/uL (0.0-0.2); EOSINOPHILS % (AUTO) 1.7 % (0.9-2.9); HEMATOCRIT 33.4 % (42.0-54.0); HEMOGLOBIN 11.3 g/dL (13.5-18.0); LYMPHOCYTES # (AUTO) 0.9 X10^3/uL (1.3-2.9); LYMPHOCYTES % (AUTO) 11.1 % (21.0-51.0); MEAN CORPUSCULAR HEMOGLOBIN 38.8 pg (27.0-34.0); MEAN CORPUSCULAR VOLUME 114.2 fL (80.0-100.0); MEAN PLATELET VOLUME 9.1 fL (7.4-11.0); MONOCYTES % (AUTO) 11.7 % (0.0-13.0); NEUTROPHILS # (AUTO) 6.4 x10^3/uL (2.2-4.8); NEUTROPHILS % (AUTO) 75.1 % (42.0-75.0); RED BLOOD COUNT 2.92 X10^6/uL (4.7-6.0); RED CELL DISTRIBUTION WIDTH 14.2 % (11.6-16.5); WHITE BLOOD COUNT 8.5 X10^3/uL (3.6-10.0)
[2021-11-11 06:44] LABS: ALANINE AMINOTRANSFERASE 40 Units/L (12-78); ALBUMIN 3.4 g/dL (3.4-5.0); ALKALINE PHOSPHATASE 191 Units/L (46-116); ASPARTATE AMINO TRANSFERASE 70 Units/L (15-37); TOTAL PROTEIN 6.7 g/dL (6.4-8.2)
[2021-11-11 06:55] LABS: PLATELET MORPHOLOGY COMMENT NORMAL (NORMAL)
[2021-11-11 06:57] LABS: TARGET CELLS PRESENT
--- NOTE | 2021-11-11 06:59 | RAD ---
HISTORYCOVID PNEUMONIASTUDYCHEST, 1 [id number]/2022.TECHNIQUEAP view of the chestFINDINGSCardiac silhouette is stably enlarged with silhouetting of the left heart border. Mild worsening of left mid to lower lung airspace opacity. Silhouetting the left hemidiaphragm. No discernible pneumothorax.IMPRESSIONMildly worse appearance in left mid to lower lung airspace opacity consistent with pneumonia.Electronically signed by: Juancarlos Macdonald (Nov 11, 2021 06:58:44)
[2021-11-11] MEDS: NORCO 10/325 TAB PO PRN ×2 (08:06→15:36)
[2021-11-11] MEDS: ALBUMIN HUMAN 25%- 100 ML 100 ML IV SCH ×2 (08:32→20:54)
[2021-11-11] MEDS: LIBRIUM PO SCH ×4 (08:32→20:54)
[2021-11-11] MEDS: ALDACTONE TAB 25 MG PO SCH (08:33)
[2021-11-11] MEDS: REMDESIVIR 100 MG in NS 250 ML IV 250 ML IV SCH (08:33)
[2021-11-11] MEDS: TOPROL XL PO SCH (08:33)
[2021-11-11] MEDS: LOVENOX INJ 40 MG SYR SC SCH (08:52)
[2021-11-11] MEDS: BROVANA IN SCH ×2 (09:40→19:50)
[2021-11-11] MEDS: PULMICORT NEB TX 0.5 MG NEB SCH ×2 (09:40→19:50)
--- NOTE | 2021-11-11 12:59 | DR.H&P ---
H&P - History & Physical for Day of: H&P Date: 11/07/21 - Chief Complaint Chief Complaint: WEAKNESS, SWELLING ALL OVER, COVID-19 - History of Present Illness History of Present Illness: IS A 71 YEAR OLD PATIENT OF . HE PRESENTED TO THE ER WITH REPORTS OF SWELLING ALL OVER AND GENERALIZED WEAKNESS. PATIENT REPORTS RECENTLY TESTING POSITIVE FOR COVID-19. HE RECEIVED A MONOCLONAL ANTIBODY INFUSION ABOUT A WEEK AGO. PATIENTS DAUGHTER REPORTS THAT PATIENTS LIVER ENZYMES HAVE BEEN ELEVATED FOR THE PAST SEVERAL MONTHS. HE HAD A LIVER WORKUP BACK IN AUGUST 2021. IT WAS DETERMINED THAT PATIENT DOES HAVE CIRRHOSIS OF THE LIVER. PATIENT ADMITS TO BEING A DAILY ALCOHOL DRINKER. OTHER MEDICAL HISTORY INCLUDES ARTHRITIS, HTN, BACK SURGERY, AND NECK SURGERY. EXAMINATION OF PATIENT REVEALED A RED/BLISTERED AREA TO THE SACRUM/RIGHT CHEEK. THERE IS ALSO RENDESS AND BLISTERS NOTED TO BILATERAL LOWER EXTREMITIES. SKIN TEAR NOTED TO THE LEFT FOREARM. SCATTERED BRUISING ALSO NOTED. PATIENT REPORTS THAT HE LIVES AT HOME ALONE. ABDOMEN IS DISTENDED AND NOTED WITH DIFFUSE TENDERNESS. GENERALIZED SWELLING NOTED. 3+ EDEMA NOTED TO LOWER EXTREMITIES. HE ADMITS TO SLEEPING IN A CHAIR FOR THE PAST FEW MONTHS. ON ARRIVAL TO THE ER, VITALS WERE 97.9-80-16-96%-119/65. LABS WERE OBTAINED. ABNORMAL LAB VALUES INCLUDE THE FOLLOWING: WBC 13.9, RBC 2.96, HGB 11.5, HCT 33.7, SODIUM 127, CHLORIDE 90, CALCIUM 8.0, TOTAL BILI 2.00, AST 192, ALK PHOS 281, ALBUMIN 2.4, GLOBULIN 4.7. URINALYSIS WAS UNREMARKABLE. COVID-19 POSITIVE. A CHEST XRAY WAS OBTAINED AND REVEALED: Left perihilar and right infrahilar opacity may represent atelectasis or pneumonia. AN ABDOMEN/PELVIS CT WITH CONTRAST WAS OBTAINED AND REVEALED: Mild ascites particularly in the left upper quadrant. Hepatic steatosis. Elevated left hemidiaphragm with left lower lobe subsegmental atelectasis. Mild thickening of areas of the colon wall favored to be due to a decompressed state rather than colitis or neoplasm. IN THE ER, SHE WAS GIVEN LASIX 40MG IV X 1, ALBUMIN 25% IV X 1, NORCO 10/325MG PO X 1, AND REMDESIVIR 200MG IV X 1. HE WAS ADMITTED TO THE HOSPITAL FOR FURTHER EVALUATION AND TREATMENT OF COVID PNEUMONIA, HYPONATREAMIA, ANASARCA, ASCITES, CIRRHOSIS, AND A DECUBITUS ULCER. ON ADMISSION, HE WAS STARTED ON REMDESIVIR 100MG IV DAILY, ALBUMIN 25% IV BID, LASIX 40MG IV X 2 DOSES, LIBRIUM 25MG PO QID, LOVENOX 40MG SC DAILY, ALBUTEROL INHALER 2 PUFFS Q6H PRN, NORCO 10/325MG PO Q6H PRN, METOPROLOL 25MG PO DAILY, LIDOCAINE OINTMENT TO WOUND TID, SPIRONOLACTONE 50MG PO DAILY, BROVANA INHALER BID, AND PULMICORT NEB [place] BID. OTHERWISE, WE PLANNED TO FOLLOW UP WITH AM LABS AND CHEST XRAY AND CONTINUE TO MONITOR. TIME SPENT ON CLINICAL ASSESSMENT, REVIEWING LABS AND IMAGING, DECISION MAKING, AND DOCUMENTATION WAS GREATER THAN 75 MINUTES. - Past Medical History Past Medical History: Hypertension, Arthritis - Past Surgical History Surgical History: Ortho Surgery Additional Surgical History: BACK SURGERY, NECK SURGERY - Family History Family Medical History: Hypertension - Social History Alcohol Use: DAILY Drug Use: None - Medications Home Medications: No Known Drug Allergies Allergy (Verified 11/07/21 13:04) CONTINUE taking the following medications hydrocodone-acetaminophen 1 tab PO Q6H 11/07/21 [History] metoprolol succinate 25 mg PO DAILY 11/07/21 [History] spironolactone 50 mg PO DAILY 11/07/21 [History] New Prescriptions budesonide 1 ea NEB BIDRESP #50 ml 11/11/21 [Rx] ipratropium-albuterol 1 neb NEB TID #90 each 11/11/21 [Rx] levofloxacin 500 mg PO DAILY #10 tab 11/11/21 [Rx] - Review of Systems Constitutional: Weakness Eyes: No Symptoms Reported ENT: No Symptoms Reported Respiratory: Cough, Shortness of Breath Cardiovascular: Edema (GENERALIZED, 3+ EDEMA TO LOWER EXTREMITIES ) Gastrointestinal: No Symptoms Reported Genitourinary: No Symptoms Reported Musculoskeletal: No Symptoms Reported Skin: See HPI, Wound Neurological: Weakness - Physical Exam Vital Signs: Temperature 97.8 F Pulse Rate [Left Brachial] 86 Pulse Rate 85 Respiratory Rate 18 Blood Pressure [Left Arm] 145/71 Blood Pressure 143/75 O2 Sat by Pulse Oximetry 92 Oriented: Normal Eyes: Normal Ear: Normal Nose: Normal Throat: Normal Respiratory: Diminished Throughout Cardiovascular: Edema (GENERALIZED SWELLING, 3+ PITTING EDEMA TO BILATERAL LOWER EXTREMITIES ) : Normal Auscultation: Bowel Sounds: Normal Palpation: Normal Tenderness: Normal Skin: Wound (SACRUM ), Bruising Musculoskeletal: Normal Psychiatric: Normal Mood Description: Calm Affect: Normal Speech Pattern: Clear - Assessment/Plan (1) Pneumonia due to COVID-19 virus Status: Acute Plan: ADMIT, SUPPLEMENTAL OXYGEN, REMDESIVIR 100MG IV DAILY, ALBUMIN 25% IV BID, LASIX 40MG IV X 2 DOSES, LIBRIUM 25MG PO QID, LOVENOX 40MG SC DAILY, ALBUTEROL INHALER 2 PUFFS Q6H PRN, NORCO 10/325MG PO Q6H PRN, METOPROLOL 25MG PO DAILY, LIDOCAINE OINTMENT TO WOUND TID, SPIRONOLACTONE 50MG PO DAILY, BROVANA INHALER BID, AND PULMICORT NEB [place] BID (2) Acute hyponatremia Status: Resolved (3) Anasarca Status: Acute (4) Cirrhosis of liver Status: Acute (5) Decubitus ulcer of sacral area Status: Acute - Allergies Allergies/Adverse Reactions: Allergies Allergy/AdvReac Type Severity Reaction Status Date / Time No Known Drug Allergies Allergy Verified 11/07/21 13:04
[2021-11-11] MEDS: LEVAQUIN PREMIX IV 500 MG 500 MG/100 ML BAG IV SCH (14:51)
[2021-11-11] MEDS: SOLU-Medrol 40 MG VIAL IVP SCH (21:30)
[2021-11-12] MEDS: NORCO 10/325 TAB PO PRN (00:45)
[2021-11-12] MEDS: SOLU-Medrol 40 MG VIAL IVP SCH ×2 (05:20→15:37)
[2021-11-12 05:37] LABS: BASOPHILS % (AUTO) 0.2 % (0.2-1.0); EOSINOPHILS % (AUTO) 0.5 % (0.9-2.9); HEMATOCRIT 32.9 % (42.0-54.0); HEMOGLOBIN 11.2 g/dL (13.5-18.0); LYMPHOCYTES # (AUTO) 0.5 X10^3/uL (1.3-2.9); MEAN CORPUSCULAR HEMOGLOBIN 38.3 pg (27.0-34.0); MEAN CORPUSCULAR HGB CONC 33.9 g/dL (33.0-35.0); MEAN CORPUSCULAR VOLUME 112.8 fL (80.0-100.0); MEAN PLATELET VOLUME 8.9 fL (7.4-11.0); MONOCYTES # (AUTO) 0.4 x10^3/uL (0.3-0.8); MONOCYTES % (AUTO) 4.9 % (0.0-13.0); NEUTROPHILS # (AUTO) 6.8 x10^3/uL (2.2-4.8); NEUTROPHILS % (AUTO) 88.4 % (42.0-75.0); RED BLOOD COUNT 2.92 X10^6/uL (4.7-6.0); RED CELL DISTRIBUTION WIDTH 14.2 % (11.6-16.5); WHITE BLOOD COUNT 7.6 X10^3/uL (3.6-10.0)
[2021-11-12] MEDS: XYLOCAINE OINT 5% TOP SCH ×3 (05:39→20:45)
[2021-11-12 05:43] LABS: BLOOD UREA NITROGEN 11 mg/dL (7-18); CALCIUM 9.3 mg/dL (8.5-10.1); CARBON DIOXIDE 29.2 mmol/L (21-32); CHLORIDE 102 mmol/L (98-107); COR NA(FOR HYPERGLY) 142 mmol/L (136-145); CREATININE 0.73 mg/dL (0.70-1.30); eGFR NON BLACK RACES > 60 (>60)
[2021-11-12 05:44] LABS: SODIUM 141 mmol/L (136-145)
[2021-11-12 06:14] LABS: ALANINE AMINOTRANSFERASE 35 Units/L (12-78); ALBUMIN 3.7 g/dL (3.4-5.0); ALKALINE PHOSPHATASE 190 Units/L (46-116); ASPARTATE AMINO TRANSFERASE 58 Units/L (15-37); TOTAL PROTEIN 7.2 g/dL (6.4-8.2)
[2021-11-12 06:25] LABS: PLATELET MORPHOLOGY COMMENT NORMAL (NORMAL)
[2021-11-12] MEDS: BROVANA IN SCH ×2 (08:50→20:30)
[2021-11-12] MEDS: PULMICORT NEB TX 0.5 MG NEB SCH ×2 (08:50→20:30)
[2021-11-12] MEDS: ALBUMIN HUMAN 25%- 100 ML 100 ML IV SCH ×2 (09:05→20:45)
[2021-11-12] MEDS: REMDESIVIR 100 MG in NS 250 ML IV 250 ML IV SCH (09:05)
[2021-11-12] MEDS: ALDACTONE TAB 25 MG PO SCH (09:06)
[2021-11-12] MEDS: TOPROL XL PO SCH (09:06)
[2021-11-12] MEDS: LEVAQUIN PREMIX IV 500 MG 500 MG/100 ML BAG IV SCH (09:06)
[2021-11-12] MEDS: LIBRIUM PO SCH ×4 (09:07→20:45)
[2021-11-12] MEDS: LOVENOX INJ 40 MG SYR SC SCH (09:07)
--- NOTE | 2021-11-12 09:14 | RAD ---
HISTORYShortness of breathSTUDYChest AP [id number]/24/2022FINDINGSHear t size difficult to assess due to obscuration of the left heart border by what is likely a combination of an elevated left hemidiaphragm and left pleural effusion. Underlying infiltrate or atelectasis not excluded. Remainder of the lung crook are clear. Bony thorax is unremarkable.IMPRESSIONNo change opacification lower 2/3 of the left hemithorax likely due to a combination of elevated left hemidiaphragm and pleural effusion. Underlying infiltrate or atelectasis also may be present.Electronically signed by: JASON OCONNOR (Nov 12, 2021 07:16:17)
[2021-11-12] MEDS ORDERED: NS 250 ML IV 250 ML IV ONE (10:35)
[2021-11-13] MEDS: SOLU-Medrol 40 MG VIAL IVP SCH (06:00)
[2021-11-13] MEDS: XYLOCAINE OINT 5% TOP SCH (06:08)
[2021-11-13 06:18] LABS: BASOPHILS % (AUTO) 0.3 % (0.2-1.0); HEMATOCRIT 31.7 % (42.0-54.0); HEMOGLOBIN 10.7 g/dL (13.5-18.0); LYMPHOCYTES # (AUTO) 0.9 X10^3/uL (1.3-2.9); LYMPHOCYTES % (AUTO) 8.2 % (21.0-51.0); MEAN CORPUSCULAR HEMOGLOBIN 37.9 pg (27.0-34.0); MEAN CORPUSCULAR HGB CONC 33.7 g/dL (33.0-35.0); MEAN CORPUSCULAR VOLUME 112.7 fL (80.0-100.0); MEAN PLATELET VOLUME 9.5 fL (7.4-11.0); MONOCYTES # (AUTO) 0.7 x10^3/uL (0.3-0.8); MONOCYTES % (AUTO) 5.7 % (0.0-13.0); NEUTROPHILS # (AUTO) 9.7 x10^3/uL (2.2-4.8); NEUTROPHILS % (AUTO) 85.8 % (42.0-75.0); RED BLOOD COUNT 2.81 X10^6/uL (4.7-6.0); RED CELL DISTRIBUTION WIDTH 14.2 % (11.6-16.5); WHITE BLOOD COUNT 11.3 X10^3/uL (3.6-10.0)
[2021-11-13 06:36] LABS: ALANINE AMINOTRANSFERASE 30 Units/L (12-78); ALBUMIN 3.8 g/dL (3.4-5.0); ALKALINE PHOSPHATASE 161 Units/L (46-116); ASPARTATE AMINO TRANSFERASE 45 Units/L (15-37); BLOOD UREA NITROGEN 19 mg/dL (7-18); CALCIUM 9.2 mg/dL (8.5-10.1); CHLORIDE 103 mmol/L (98-107); COR NA(FOR HYPERGLY) 143 mmol/L (136-145); CREATININE 0.77 mg/dL (0.70-1.30); SODIUM 142 mmol/L (136-145); eGFR NON BLACK RACES > 60 (>60)
[2021-11-13 07:19] LABS: PLATELET MORPHOLOGY COMMENT NORMAL (NORMAL)
[2021-11-13 07:20] LABS: TARGET CELLS NOTED
--- NOTE | 2021-11-13 07:23 | RAD ---
HISTORYCOVID-19 SOBSTUDYAP [id number]/25/2022FINDINGSThere is no significant change since 1 day prior. Heart size is stable. Extensive left basal opacity again noted consistent with airspace disease and pleural effusion. There is no additional consolidation or pneumothorax identified.IMPRESSIONNo change.Electronically signed by: ARIEL KELLEY (Nov 13, 2021 07:21:26)
[2021-11-13] MEDS: BROVANA IN SCH (08:37)
[2021-11-13] MEDS: PULMICORT NEB TX 0.5 MG NEB SCH (08:37)
[2021-11-13] MEDS: ALBUMIN HUMAN 25%- 100 ML 100 ML IV SCH (08:42)
[2021-11-13] MEDS: LEVAQUIN PREMIX IV 500 MG 500 MG/100 ML BAG IV SCH (08:44)
[2021-11-13] MEDS: ALDACTONE TAB 25 MG PO SCH (08:44)
[2021-11-13] MEDS: TOPROL XL PO SCH (08:45)
[2021-11-13] MEDS: LIBRIUM PO SCH (08:45)
[2021-11-13] MEDS: LOVENOX INJ 40 MG SYR SC SCH (08:45)
[2021-11-13 12:02] VITALS: BP 194/88
[2021-11-19 13:57] LABS: C282Y NEGATIVE; H63D NEGATIVE; S65C NEGATIVE
== END 2021-11-13 12:35 | DRG 177 ==
LOC: U 11:02 → ER 11:02 → OBSVTOIN 19:14 → U 19:29 → ICU 11-08 14:19
PROVIDERS: ADMIT Internal Medicine; ATTEND Internal Medicine